=== PATIENT | female | born 1970 | race Caucasian/White ===

== ENCOUNTER → 2016-11-12 | Outpatient (CLI) | payer BC, MEDICAID | LOC: OD 13:02 | PROVIDERS: ATTEND Midwife | DX: O09.513 Supervision of elderly primigravida, third trimester (principal); Z13.0 Encounter for screening for diseases of the blood and blood-forming organs and certain disorders involving the immune mechanism; Z11.3 Encounter for screening for infections with a predominantly sexual mode of transmission; Z11.4 Encounter for screening for human immunodeficiency virus [HIV] | CPT/HCPCS: 36415; 86592; 86701 ==

== ENCOUNTER 2017-01-08 18:47 | Outpatient (CLI) | payer BC, MEDICAID ==
[2017-01-08 19:32] LABS: APPEARANCE,URINE CLEAR; BILIRUBIN,URINE NEGATIVE (NEGATIVE); GLUCOSE, URINE NEGATIVE (NEGATIVE); KETONES,URINE NEGATIVE (NEGATIVE); LEUKOCYTE ESTERASE,URINE NEGATIVE (NEGATIVE); NITRITE,URINE NEGATIVE (NEGATIVE); PROTEIN,URINE NEGATIVE (NEGATIVE); URINE SPECIFIC GRAVITY 1.011; UROBILINOGEN,URINE NEGATIVE mg/dL (<2.0)
[2017-01-08 19:58] LABS: URINE BARBITURATES SCREEN NEGATIVE; URINE METHADONE SCREEN NEGATIVE; URINE OPIATES LOW NEGATIVE; URINE PHENCYCLIDINE SCREEN NEGATIVE
== END 2017-01-08 21:03 | disposition home or self-care (01) ==
LOC: LC 18:47
PROVIDERS: ATTEND Obstetrics & Gynecology
PROC: 4A1HXCZ Monitoring of Products of Conception, Cardiac Rate, External Approach (ICD-10-PCS; principal; 2017-01-08)
DX: O47.03 False labor before 37 completed weeks of gestation, third trimester (principal); O09.523 Supervision of elderly multigravida, third trimester; Z3A.36 36 weeks gestation of pregnancy
CPT/HCPCS: 59025; 80307; 81001

== ENCOUNTER 2017-01-10 10:56 | Outpatient (CLI) | payer BC, MEDICAID ==
[2017-01-10 11:53] LABS: APPEARANCE,URINE SLIGHTLY-CLOUDY; BILIRUBIN,URINE NEGATIVE (NEGATIVE); GLUCOSE, URINE NEGATIVE (NEGATIVE); KETONES,URINE NEGATIVE (NEGATIVE); LEUKOCYTE ESTERASE,URINE MODERATE (NEGATIVE); NITRITE,URINE NEGATIVE (NEGATIVE); PROTEIN,URINE NEGATIVE (NEGATIVE); URINE SPECIFIC GRAVITY 1.004; UROBILINOGEN,URINE NEGATIVE mg/dL (<2.0)
[2017-01-10 12:37] LABS: URINE BARBITURATES SCREEN NEGATIVE; URINE METHADONE SCREEN NEGATIVE; URINE OPIATES LOW NEGATIVE; URINE PHENCYCLIDINE SCREEN NEGATIVE
== END 2017-01-10 11:41 | disposition home or self-care (01) ==
LOC: LC 10:56
PROVIDERS: ATTEND Obstetrics & Gynecology
PROC: 4A1HXCZ Monitoring of Products of Conception, Cardiac Rate, External Approach (ICD-10-PCS; principal; 2017-01-10)
DX: O09.523 Supervision of elderly multigravida, third trimester (principal); O47.03 False labor before 37 completed weeks of gestation, third trimester; Z3A.36 36 weeks gestation of pregnancy
CPT/HCPCS: 59025; 80307; 81001

== ENCOUNTER 2017-01-28 07:45 | Inpatient (IN) | payer BC, MEDICAID ==
[2017-01-28] MEDS ORDERED: OXYTOCIN/NORMAL SALINE 1,000 ML IV PRN ×2 (08:06→19:10)
[2017-01-28] MEDS ORDERED: RINGERS SOLUTION,LACTATED 1,000 ML IV PRN (08:06)
[2017-01-28] MEDS ORDERED: RINGERS SOLUTION,LACTATED 1,000 ML IV ONE (08:06)
[2017-01-28] MEDS ORDERED: OXYTOCIN/NORMAL SALINE 20 UNIT/1,000 ML RTUINJ ONE ×2 (08:52→19:50)
[2017-01-28] MEDS ORDERED: MISOPROSTOL 0.2 MG TABLET ONE (08:52)
[2017-01-28] MEDS ORDERED: LIDOCAINE 1% INJ-PF (10 MG/ML) 30 ML SDV ONE (08:52)
[2017-01-28 09:01] LABS: AMORPHOUS SEDIMENT,URINE TRACE /HPF; APPEARANCE,URINE CLOUDY; BILIRUBIN,URINE NEGATIVE (NEGATIVE); GLUCOSE, URINE NEGATIVE (NEGATIVE); KETONES,URINE TRACE mg/dL (NEGATIVE); LEUKOCYTE ESTERASE,URINE MODERATE (NEGATIVE); NITRITE,URINE NEGATIVE (NEGATIVE); PROTEIN,URINE 30 mg/dL (NEGATIVE); URINE SPECIFIC GRAVITY 1.026; UROBILINOGEN,URINE NEGATIVE mg/dL (<2.0)
[2017-01-28 09:04] LABS: ABSOLUTE BASOPHILS # (AUTO) 0.1 10^3/uL (0.0-0.2); ABSOLUTE EOSINOPHILS # (AUTO) 0.1 10^3/uL (0.0-0.6); ABSOLUTE LYMPHOCYTES (AUTO) 1.7 10^3/uL (0.5-4.7); ABSOLUTE MONOCYTES (AUTO) 0.9 10^3/uL (0.1-1.4); ABSOLUTE NEUT (AUTO) 7.4 10^3/uL (1.7-8.2); BASOPHILS % (AUTO) 0.6 % (0-2); EOSINOPHILS % (AUTO) 1.1 % (0-6); HEMATOCRIT 32.1 % (36.0-47.0); HEMOGLOBIN 10.7 g/dL (12.0-15.5); LYMPHOCYTES % (AUTO) 16.7 % (13-45); MEAN CORPUSCULAR HEMOGLOBIN 27.3 pg (27.0-33.4); MEAN CORPUSCULAR HGB CONC 33.3 g/dL (32.0-36.0); MEAN CORPUSCULAR VOLUME 82 fl (80-97); MONOCYTES % (AUTO) 8.9 % (3-13); RED BLOOD COUNT 3.92 10^6/uL (3.72-5.28); RED CELL DISTRIBUTION WIDTH 16.7 % (11.5-14.0); SEGMENTED NEUTROPHILS % (AUTO) 72.7 % (42-78); WHITE BLOOD COUNT 10.2 10^3/uL (4.0-10.5)
[2017-01-28 09:10] LABS: URINE BARBITURATES SCREEN NEGATIVE; URINE METHADONE SCREEN NEGATIVE; URINE OPIATES LOW NEGATIVE; URINE PHENCYCLIDINE SCREEN NEGATIVE
[2017-01-28] MEDS ORDERED: NALBUPHINE HCL INJ 10 MG/1 ML AMPULE INJ PRN (16:17)
[2017-01-28] MEDS ORDERED: NALBUPHINE HCL INJ 10 MG/1 ML AMPULE ONE (16:39)
[2017-01-28] MEDS ORDERED: OXYTOCIN 10 UNIT/ML VIAL ONE (18:55)
[2017-01-28] MEDS ORDERED: METHYLERGONOVINE MALEATE INJ/PF 0.2 MG/1 ML AMPULE ONE (18:55)
[2017-01-28] MEDS ORDERED: ZOLPIDEM TARTRATE 5 MG TABLET PO PRN (19:10)
[2017-01-28] MEDS ORDERED: MEASLES,MUMPS&RUBELLA VACC/PF 0.5 ML VIAL SUBCUT PRN (19:10)
[2017-01-28] MEDS ORDERED: PROMETHAZINE HCL 25 MG TABLET PO PRN (19:10)
[2017-01-28] MEDS ORDERED: NA PHOS,M-B/NA PHOS,DI-BA (ADULT) 133 ML ENEMA PR PRN (19:10)
[2017-01-28] MEDS ORDERED: PROMETHAZINE HCL INJ 25 MG/1 ML VIAL IV PRN (19:10)
[2017-01-28] MEDS ORDERED: PSEUDOEPHEDRINE HCL 30 MG TABLET PO PRN (19:10)
[2017-01-28] MEDS ORDERED: MAGNESIUM HYDROXIDE SUSP 30 ML UDCUP PO PRN (19:10)
[2017-01-28] MEDS ORDERED: ACETAMINOPHEN 650 MG SUPP.RECT PR PRN (19:10)
[2017-01-28] MEDS ORDERED: DIPH/PERTUSS(ACELL)/TETANUS VAC/PF 0.5 ML SYR (>=10YO) IM PRN (19:10)
[2017-01-28] MEDS ORDERED: PROMETHAZINE HCL 25 MG SUPP.RECT PR PRN (19:10)
[2017-01-28] MEDS ORDERED: ACETAMINOPHEN WITH CODEINE #3 TABLET PO PRN ×2 (19:10)
[2017-01-28] MEDS ORDERED: GLYCERIN/WITCH HAZEL LEAF 1 EACH MED..PAD TP PRN (19:10)
[2017-01-28] MEDS ORDERED: DIBUCAINE 1% OINTMENT 28 GM TP PRN (19:10)
[2017-01-28] MEDS ORDERED: DIPHENHYDRAMINE HCL 25 MG CAPSULE PO PRN (19:10)
[2017-01-28] MEDS ORDERED: BENZOCAINE/MENTHOL AEROSOL SPRAY 56 ML TOP PRN (19:10)
--- NOTE | 2017-01-28 21:02 | Admission Physical ---
Datetime Report Generated by CPN: 01/28/2017 21:02 CURRENT ADMISSION Chief Complaint: Scheduled Induction of Labor Indication for Induction: Other Indication for Induction- Other: AMA Admit Plan: Admit to Unit; Initiate Labor Induction Protocol ALLERGIES Medication Allergies: No Medication Allergies: No Known Allergies (01/28/2017) Medication Allergies: No Known Allergies (01/08/2017) Medication Allergies: No Known Allergies (11/10/2015) Latex: No Latex Allergies Food Allergies: None Environmental Allergies: None OBSTETRICAL HISTORY EDC: 02/02/2017 00:00 : 7 Para: 2 Term: 2 : 0 SAB: 2 IAB: 2 Ectopic: 0 Livin Cesareans: 0 VBACs: 0 Multiple Births: 0 Gestational Diabetes: No Rh Sensitization: No Incompetent Cervix: No MARK: No Infertility: No ART Treatment: No Uterine Anomaly: No IUGR: No Hx Previous C/S: No Macrosomia: No Hx Loss/Stillborn: No PIH: No Hx : No Placenta Previa/Abruption: No Depression/PP Depression: No PTL/PROM: No Post Hemorrhage: Yes Current Procedures: Ultrasound; NST Obstetrical History Comments: 1994 baby girl, 7 lb 3 oz 1999 baby girl, 8 lb 3 oz Current-Vasa Previa; AMA NO VAG EXAMSPER DR. DELAROSA WHO SPOKE WITH DR. REAL AT [facility]: PT DOES NOT HAVE VASA PREVIA AND IS OKAY FOR VAGINAL DELIVERY. States that she had post hemorrhaging with both of her previous pregnancies. SEE RECORDS Alcohol: No Alcohol Frequency: Occasional Advised to Stop: Yes Alcohol Comments: Before Marijuana : No Cocaine: No Other Illicit Drugs: No Cigarettes: Never Smoker. 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 Surgery: No Heart Disease: No Hosp/Surgery: Yes Autoimmune Disorder: No Anesthetic Complications: No Kidney Disease: No Abnormal Pap Smear: No Neuro/Epilepsy: No Psychiatric Disorders: No Other Medical Diseases: No Hepatitis/Liver Disease: No Significant Family History: No Varicosities/Phlebitis: No Trauma/Violence : No Thyroid Dysfunction: No Medical History Comments: CHILDBIRTH Surgery: Adenoidectomy, Breast Augmentation INFECTIOUS HISTORY Gonorrhea: No Genital Herpes: No Chlamydia: No Tuberculosis: No Syphilis: No Hepatitis: No HIV/AIDS Exposure: No Rash or Viral Illness: No HPV: No PHYSICAL EXAM General: Normal HEENT: Normal Neurologic: Normal Thyroid: Deferred Heart: Normal Lungs: Normal Breast: Deferred Back: Normal Abdomen: Normal Genitourinary Exam: Normal Extremities: Normal DTRs: Normal Pelvic Type: Adequate Physical Exam Comments: Gravid uterus Vital Signs: Reviewed; Within Normal Limits FETUS A EGA: 39.2 Admit Comment: H_P done after delivery. of 39.2 wks AMA-44 yrs records available. PLANS FOR LABOR AND DELIVERY Labor and Delivery: None Pain Management: Epidural Feeding Preference: Breast Benefit of Breast Feed Discussed: Yes Circumcision: Yes INFORMED CONSENT Assignment: Rolando Ingram DO Signature: with User ID: Neema : with User ID: Neema : I personally evaluated and examined the patient in conjunction with the MLP and agree with the assessment, treatment plan and disposition.
[2017-01-28] MEDS: IBUPROFEN 800 MG TABLET PO SCH (22:18)
[2017-01-28] MEDS: FAMOTIDINE 20 MG TABLET PO SCH (22:18)
[2017-01-28] MEDS: METHYLERGONOVINE MALEATE 0.2 MG TABLET PO SCH (23:22)
[2017-01-29] MEDS: DOCUSATE SODIUM 100 MG CAPSULE PO SCH ×2 (10:00→18:00)
[2017-01-29] MEDS: SENNOSIDES/DOCUSATE 8.6-50 MG 1 EACH TABLET PO SCH (10:00)
[2017-01-29] MEDS: FERROUS SULFATE 325 MG TABLET PO SCH ×2 (10:00→18:00)
[2017-01-29] MEDS: FAMOTIDINE 20 MG TABLET PO SCH ×2 (10:00→22:39)
[2017-01-29] MEDS: PRENATAL VITAMIN W-O CA NO5/FE FUMARATE/FA CAPSULE PO SCH (10:00)
[2017-01-29] MEDS: METHYLERGONOVINE MALEATE 0.2 MG TABLET PO SCH ×2 (12:00→18:00)
[2017-01-29] MEDS: IBUPROFEN 800 MG TABLET PO SCH ×2 (14:00→22:39)
[2017-01-30] MEDS: IBUPROFEN 800 MG TABLET PO SCH (06:50)
[2017-01-30 08:01] LABS: HEMATOCRIT 31.3 % (36.0-47.0); HGB HCT DIFFERENCE -1.3; MEAN CORPUSCULAR HEMOGLOBIN 26.7 pg (27.0-33.4); MEAN CORPUSCULAR HGB CONC 32.1 g/dL (32.0-36.0); MEAN CORPUSCULAR VOLUME 83 fl (80-97); RED BLOOD COUNT 3.76 10^6/uL (3.72-5.28); RED CELL DISTRIBUTION WIDTH 16.6 % (11.5-14.0); WHITE BLOOD COUNT 19.7 10^3/uL (4.0-10.5)
--- NOTE | 2017-01-30 08:21 | PDOC PROGRESS REPORT ---
Subjective-OB Subjective: Post Delivery Day: 46 year old. Denies any needs at this time Doing well, no c/o, sitting up in bed, ready to go home, hsb at BS, , voiding, diet taken well Physical Exam (OB) Vital Signs: Temp Pulse Resp BP Pulse Ox 97.6 F 93 18 105/59 L 98 01/29/17 19:35 01/29/17 19:35 01/29/17 19:35 01/29/17 19:35 01/29/17 19:35 Intake & Output 01/29/17 01/30/17 01/31/17 06:59 06:59 06:59 Weight 73.25 kg - PIH/Pre-Eclampsia DTR's: 1 + Clonus: Negative Headache: Absent Epigastric Pain: No Visual Changes: No - Lochia Lochia Amount: Small 10-25 ml Lochia Color: Rubra/Red - Abdomen Description: Soft, Round Hernia Present: No Fundal Description: Firm, Midline Fundal Height: u/u - u/2 Assessment and Plan(PN) - Assessment and Plan (1) Vaginal delivery Is this a current diagnosis for this admission?: Yes (2) Advanced maternal age (AMA), 40 years or greater Is this a current diagnosis for this admission?: Yes - Time Spent with Patient Time with patient: Less than 15 minutes Medications reviewed and adjusted accordingly: Yes - Disposition Anticipated Discharge: Home Within: Other - home today, reviewed home instructions
--- NOTE | 2017-01-30 08:25 | PDOC DISCHARGE SUMMARY ---
Final Diagnosis Discharge Date: 01/30/17 - Final Diagnosis (1) Vaginal delivery Is this a current diagnosis for this admission?: Yes (2) Advanced maternal age (AMA), 40 years or greater Is this a current diagnosis for this admission?: Yes Discharge Data - Discharge Medication Home Medications: Vit/Iron Fumarate/FA [ Tablet] 1 each PO DAILY 01/08/17 Cetirizine HCl [Zyrtec 10 mg Tablet] 1 tab PO DAILY 01/10/17 Fluticasone Propionate [Flonase Allergy Relief] 9.9 ml NS PRN PRN 01/10/17 Ferrous Sulfate [Iron] 325 mg PO DAILY 01/28/17 Gestational Age: 39.2 Reason(s) for Admission: Induction of Labor, Advanced Maternal Age Procedures: NST, Ultrasound Intrapartum Procedure(s): Spontaneous Vaginal Delivery Complication(s): Laceration-Perineal Laceration-Degree: 1st - Data Baby 1 Male at 1 minute: 9 at 5 minutes: 9 Weight: 3.6 kg Home with Mother: Yes Complications: No - Diagnosis Test Laboratory: Temp Pulse Resp BP Pulse Ox 97.6 F 93 18 105/59 L 98 01/29/17 19:35 01/29/17 19:35 01/29/17 19:35 01/29/17 19:35 01/29/17 19:35 01/28/17 01/28/17 08:00 08:40 RBC 3.92 Hgb 10.7 L Hct 32.1 L Urine Opiates Screen NEGATIVE - Discharge information/Instructions Discharge Activity: Activity As Tolerated, Keep Legs Elevated, Pelvic Rest Discharge Diet: As Tolerated, Regular Disposition: HOME, SELF-CARE Follow up with: [facility] in: 4, Weeks - BTL at 4 weeks
[2017-01-30 09:35] VITALS: BP 103/63
[2017-01-30] MEDS: DOCUSATE SODIUM 100 MG CAPSULE PO SCH (09:38)
[2017-01-30] MEDS: FERROUS SULFATE 325 MG TABLET PO SCH (09:38)
[2017-01-30] MEDS: PRENATAL VITAMIN W-O CA NO5/FE FUMARATE/FA CAPSULE PO SCH (09:38)
[2017-01-30] MEDS: SENNOSIDES/DOCUSATE 8.6-50 MG 1 EACH TABLET PO SCH (09:39)
[2017-01-30] MEDS: FAMOTIDINE 20 MG TABLET PO SCH (09:39)
--- NOTE | 2017-02-03 18:12 | Delivery Summary ---
Del Sum A-C Datetime Report Generated by CPN: 02/03/2017 18:12 DELIVERY PERSONNEL DELIVERY PERSONNEL: [phone];[phone] DELIVERY PERSONNEL: [phone] Delivery Doctor:: Kristen Arriola MD Labor and Delivery Nurse:: Skyler Lockhart RNcivil engineering drafter Nurse:: Danita Tristan RN Nursery Nurse:: SAMARIA WALKER RN Vascular Physician/LASTING MACHINE OPERATOR: Romy Perez, ST MATERNAL INFORMATION Delivery Anesthesia: Local; Pudendal (Annotations: Data stored by CPN on behalf of user) Medications After Delivery: Pitocin Bolus-Please Comment; Pitocin Drip 20 Units/1000ml NSS; Other-Please Comment Meds After Delivery Comment: CYTOTEC 1000 MCG PER VAGINA BY PITOCIN 20 UNITS ADDED TO PITOCIN IVF @ BOLUS Estimated Blood Loss (ml): 450 Maternal Complications: Other Other Maternal Complications: AMA Provider Comments: VMI delivered in MELIA presentation with nuchal cord times 1. Shoulders and delivered without difficulty. Cord doubly clamped and cut. placenta delivered intact spontaneously. FF at U after uterotonics. mother and baby stable. good hemostasis. LABOR SUMMARY EDC: 02/02/2017 00:00 No. Babies in Womb: 1 Attempted: No Labor Anesthesia: IV Sedation LABOR INFORMATION Reason for Induction: Other Reason for Induction- Other: AMa Onset of Labor: 01/28/2017 14:30 Complete Dilatation: 01/28/2017 18:19 Oxytocin: Induction Group B Beta Strep: negative Antibiotics # of Doses: 0 Steroids Given: None Reason Steroids Not Administered: Not Applicable MEMBRANES Membranes Rupture Method: Spontaneous Rupture of Membranes: 01/28/2017 18:02 Length of Rupture (hr): 0.75 Amniotic Fluid Color: Bloody Amniotic Fluid Amount: Small Amniotic Fluid Odor: None STAGES OF LABOR Stage 1 hr: 3 Stage 1 min: 49 Stage 2 hr: 0 Stage 2 min: 28 Stage 3 hr: 0 Stage 3 min: 3 Total Time in Labor hr: 4 Total Time in Labor min: 20 VAGINAL DELIVERY Episiotomy: None Laceration Extension: N/A Laceration Type: Perineal Other Laceration: SUPERFICIAL PERINEAL LAC Laceration Repair: Yes Laceration Repair Note: 1st degree laceration repaired in usual fashion Sponge Count Correct: N/A Sharps Count Correct: N/A BABY A INFORMATION Delivery Date/Time: 01/28/2017 18:47 Method of Delivery: Vaginal Method of Delivery: Vaginal Born in Route : No : N/A Forceps: N/A Vacuum Extraction: N/A Shoulder Dystocia : No PRESENTATION/POSITION BABY A Presentation: Cephalic Presentation: Cephalic Presentation: Cephalic Cephalic Presentation: N/A Vertex Position: Right Occipital Anterior Breech Presentation: N/A PLACENTA INFORMATION BABY A Placenta Delivery Time : 01/28/2017 18:50 Placenta Method of Delivery: Spontaneous Placenta Status: Delivered SCORES BABY A Heart Rate 1 min: >100 bpm Resp Effort 1 min: Good Cry Reflex Irritability 1 min: Cough or Sneeze or Pulls Away Muscle Tone 1 min: Active Motion Color 1 min: Body [place], Extremities Blue Resuscitation Effort 1 min: Tactile Stimulation SCORE 1 MIN: 9 Heart Rate 5 min: >100 bpm Resp Effort 5 min: Good Cry Reflex Irritability 5 min: Cough or Sneeze or Pulls Away Muscle Tone 5 min: Active Motion Color 5 min: Body [place], Extremities Blue Resuscitation Effort 5 min: Tactile Stimulation SCORE 5 MIN: 9 INFORMATION BABY A Gestational Age at Delivery: 39.2 Gestational Status: Full Term- 39- 40.6 Weeks Outcome : Liveborn Condition : Stable Sex: Male IDENTIFICATION BABY A Verification Date/Time: 01/28/2017 19:04 ID Band Number: [id number] Mother's Name Verified: Yes RN Verifying Infant: Eva Gonzales [facility] Additional Verifying Personnel: [employer] LASTING MACHINE OPERATOR WEIGHT/LENGTH BABY A Birthweight (gm): 3595 Infant Weight (lb): 7 Infant Weight (oz): 15 Infant Length (in): 21.00 Length (cm): 53.34 CORD INFORMATION BABY A No. Cord Vessels: 3 Nuchal Cord : Around Neck x1, Loose Cord Blood Taken: Yes-For Eval (Mom's Blood Type - or O+) Suction: Mouth ASSESSMENT BABY A Infant Complications: Multiple Variable Decels Physical Findings at Delivery: Within Normal Limits Respirations: Appears Normal Skin to Skin: Yes Skin to Skin: Yes Skin to Skin Time (min): 60 Technical Support Manager/ALS Called : No Care By: Griselda WALKER RN Transferred To: Remains with Mother BABY B INFORMATION : N/A SIGNATURES Signature: with User ID: Riley, Addendum/Amendment: Prior to delivery pt examined and c/c/+3. Pt unable to obtain epidural and pudendal block offered to her. R/B/A reviewed. She desires pudendal. Pudendal block performed in usual fashion with 10ml per side of 2% lidocaine with epinephrine. Pudendal block tolerated well. Signature: with User ID: Riley : with User ID: Riley : I personally evaluated and examined the patient in conjunction with the MLP and agree with the assessment, treatment plan and disposition.
== END 2017-01-30 12:11 | disposition home or self-care (01) | DRG 775 ==
LOC: LR 07:45 → 2S 21:00
PROVIDERS: ADMIT Obstetrics & Gynecology; ATTEND Obstetrics & Gynecology
PROC: 10E0XZZ Delivery of Products of Conception, External Approach (ICD-10-PCS; principal; 2017-01-28)
PROC: 0HQ9XZZ Repair Perineum Skin, External Approach (ICD-10-PCS; 2017-01-28)
PROC: 3E0P7GC Introduction of Other Therapeutic Substance into Female Reproductive, Via Natural or Artificial Opening (ICD-10-PCS; 2017-01-28)
PROC: 4A1HXCZ Monitoring of Products of Conception, Cardiac Rate, External Approach (ICD-10-PCS; 2017-01-28)
DX: O76 Abnormality in fetal heart rate and rhythm complicating labor and delivery (principal); O69.81X0 Labor and delivery complicated by cord around neck, without compression, not applicable or unspecified; O70.0 First degree perineal laceration during delivery; Z3A.39 39 weeks gestation of pregnancy; Z37.0 Single live birth
CPT/HCPCS: 36415; 80307; 81001; 85025; 85027; 86592; 86850; 86900; 86901; J2210; J2300; J2590; J3490

== ENCOUNTER 2017-10-09 05:16 | Day surgery (SDC) | payer BC, MEDICAID ==
[2017-10-03 12:18] LABS: HEMOGLOBIN 13.7 g/dL (12.0-15.5); MEAN CORPUSCULAR HEMOGLOBIN 29.4 pg (27.0-33.4); MEAN CORPUSCULAR HGB CONC 34.2 g/dL (32.0-36.0); MEAN CORPUSCULAR VOLUME 86 fl (80-97); PLATELET COUNT 372 10^3/uL (150-450); RED BLOOD COUNT 4.65 10^6/uL (3.72-5.28); RED CELL DISTRIBUTION WIDTH 13.8 % (11.5-14.0); WHITE BLOOD COUNT 5.8 10^3/uL (4.0-10.5)
[2017-10-03 12:42] LABS: ALANINE AMINOTRANSFERASE 28 U/L (9-52); ALBUMIN 4.5 g/dL (3.5-5.0); ALKALINE PHOSPHATASE 48 U/L (38-126); ANION GAP 12 (5-19); ASPARTATE AMINO TRANSFERASE 16 U/L (14-36); BILIRUBIN,DIRECT 0.2 mg/dL (0.0-0.4); BILIRUBIN,TOTAL 0.4 mg/dL (0.2-1.3); BLOOD UREA NITROGEN 10 mg/dL (7-20); CALCIUM 9.9 mg/dL (8.4-10.2); CARBON DIOXIDE 25 mmol/L (22-30); CHLORIDE 105 mmol/L (98-107); GLUCOSE 87 mg/dL (75-110); POTASSIUM 4.6 mmol/L (3.6-5.0); SODIUM 141.6 mmol/L (137-145); TOTAL PROTEIN 7.3 g/dL (6.3-8.2)
[2017-10-03 12:50] LABS: APPEARANCE,URINE CLEAR; BILIRUBIN,URINE NEGATIVE (NEGATIVE); COLOR,URINE STRAW; GLUCOSE, URINE NEGATIVE (NEGATIVE); KETONES,URINE NEGATIVE (NEGATIVE); LEUKOCYTE ESTERASE,URINE NEGATIVE (NEGATIVE); NITRITE,URINE NEGATIVE (NEGATIVE); PROTEIN,URINE NEGATIVE (NEGATIVE); URINE SPECIFIC GRAVITY 1.005; UROBILINOGEN,URINE NEGATIVE mg/dL (<2.0)
--- NOTE | 2017-10-03 13:26 | RADIOLOGY REPORT (SQ) ---
EXAM DESCRIPTION: CHEST PA/LATERAL COMPLETED DATE/TIME: 10/03/2017 12:06 pm REASON FOR STUDY: PRE-OP COMPARISON: None. EXAM PARAMETERS: NUMBER OF VIEWS: two views TECHNIQUE: Digital Frontal and Lateral radiographic views of the chest acquired. RADIATION DOSE: NA LIMITATIONS: none FINDINGS: LUNGS AND PLEURA: No opacities, masses or pneumothorax. No pleural effusion. MEDIASTINUM AND HILAR STRUCTURES: No masses or contour abnormalities. HEART AND VASCULAR STRUCTURES: Heart normal size. No evidence for failure. BONES: No acute findings. HARDWARE: None in the chest. OTHER: No other significant finding. IMPRESSION: NO SIGNIFICANT RADIOGRAPHIC FINDING IN THE CHEST. TECHNICAL DOCUMENTATION: JOB ID: [id number] [employer]- All Rights Reserved
--- NOTE | 2017-10-04 10:19 | EKG REPORT ---
SEVERITY:- NORMAL ECG - SINUS RHYTHM : Confirmed by: Derrek Martinez 04-Oct-2017 10:18:51
[~2017-10-09 05:16] MED LIST: CEFAZOLIN 1 GM/D5W RTU 1 GM/50 ML RTUPB IV PRN; LACTATED RINGERS 1000 ML IV PRN
[2017-10-09] MEDS ORDERED: EPHEDRINE SULFATE INJ 50 MG/1 ML AMPULE ONE (06:57)
[2017-10-09] MEDS ORDERED: MIDAZOLAM 2 MG/2 ML INJ ONE (06:57)
[2017-10-09] MEDS ORDERED: FENTANYL CITRATE INJ/PF 100 MCG/2 ML AMPUL ONE (06:57)
[2017-10-09] MEDS ORDERED: HYDROMORPHONE HCL INJ/PF 2 MG/ML AMPULE ONE (06:57)
[2017-10-09] MEDS ORDERED: DEXMEDETOMIDINE INJ 80 MCG/20 ML VIAL IV ONE (06:58)
[2017-10-09] MEDS ORDERED: PROPOFOL INJ 200 MG/20 ML VIAL IV ONE (06:58)
[2017-10-09] MEDS ORDERED: ACETAMINOPHEN 100 ML IV ONE (06:58)
[2017-10-09] MEDS ORDERED: SCOPOLAMINE HYDROBROMIDE 1.5 MG PATCH.TD72 TD ONE (07:30)
[2017-10-09] MEDS ORDERED: PROMETHAZINE HCL INJ 25 MG/1 ML VIAL IV PRN ×2 (07:43)
[2017-10-09] MEDS ORDERED: DIPHENHYDRAMINE HCL 50 MG/ML VIAL IV PRN (07:43)
[2017-10-09] MEDS ORDERED: MORPHINE SULFATE 10 MG/ML INJ IV PRN (07:43)
[2017-10-09] MEDS ORDERED: MEPERIDINE HCL/PF INJ 25 MG/1 ML DISP.SYRIN IV PRN (07:43)
[2017-10-09] MEDS ORDERED: FENTANYL CITRATE INJ/PF 100 MCG/2 ML AMPUL IV PRN ×3 (07:43)
[2017-10-09] MEDS ORDERED: ONDANSETRON HCL INJ/PF 4 MG/2 ML SDV IV PRN (07:48)
[2017-10-09] MEDS ORDERED: MORPHINE SULFATE 10 MG/ML INJ IM PRN (09:14)
[2017-10-09] MEDS: FENTANYL CITRATE INJ/PF 100 MCG/2 ML AMPUL ONE ×2 (09:29→09:34)
--- NOTE | 2017-10-09 09:54 | OPERATIVE REPORT E ---
Operative Report NAME: ANTON GUILLEN : 1970 AGE: 47Y DATE OF SURGERY: 10/09/2017 ROOM: OR PREOPERATIVE DIAGNOSIS: Uterine prolapse, cystocele, rectocele. POSTOPERATIVE DIAGNOSIS: Uterine prolapse, cystocele, rectocele. OPERATION: TOTAL VAGINAL HYSTERECTOMY, ANTERIOR AND POSTERIOR REPAIR. ESTIMATED BLOOD LOSS: Less than 200 mL. SURGEON: Patricia BORDEN M.D. ANESTHESIA: General. TISSUE REMOVED OR ALTERED: Uterus and portions of vagina. PROCEDURE: The patient was placed in a dorsal lithotomy position, prepped and draped in sterile fashion. A speculum was placed, cervix visualized and grasped with a Robina thyroid clamp. Posterior cul-de-sac was entered by sharp dissection. Posterior parietal peritoneum sutured to the posterior cuff with 2-0 Vicryl. Left uterosacral was clamped, divided, sutured with 2-0 Vicryl, repeated on the right. Cervix sharply circumscribed. The anterior parietal peritoneum was entered with sharp dissection. Serial clamps were used on the broad ligament, each pedicle being clamped, divided and sutured with 2-0 Vicryl. Continued to the level of the utero-ovarian ligaments which were cross clamped and uterus removed. The utero-ovarian ligaments were sutured with pre-tied 2-0 Vicryl followed by suture tie of 2-0 Vicryl. Pedicles were inspected and hemostasis was noted. Ovaries appeared to be normal. The cuff was then closed with interrupted figure-of-8 sutures of 2-0 Vicryl. The anterior repair was then accomplished by grasping the vaginal mucosa approximately 3 cm below the urethra and with sharp dissection and dividing in the midline just above the vaginal scar. The underlying vesicovaginal tissue was bluntly and sharply dissected and interrupted 2-0 Vicryl were then used to plicate the tissue in the midline. The excess vaginal mucosa was removed and defect closed with a running suture of 2-0 Vicryl. Posterior repair was accomplished by grasping the vaginal mucosa with remnants of the hymenal ring, dividing the tissue crosswise and in the midline just above the incision. The underlying rectovaginal tissue was bluntly and sharply divided. The rectovaginal tissue was then *------* midline using interrupted suture of 2-0 Vicryl. Excess vaginal mucosa was removed and the defect was running sutured with 2-0 Vicryl. The vagina was then packed with a vaginal pack after hemostasis was noted and the procedure terminated. She was taken to Recovery in good condition. Urine remained clear throughout the procedure. DICTATING PHYSICIAN: Patricia BORDEN M.D. [id number] PHY#: [id number] ID: [id number] JOB#: [id number] ACCT: [id number] cc:Patricia BORDEN M.D. >
[2017-10-09] MEDS ORDERED: PROMETHAZINE HCL INJ 25 MG/1 ML VIAL ONE (09:57)
[2017-10-09] MEDS ORDERED: LIDOCAINE 2% INJ-PF (20 MG/ML) 2 ML AMPUL ONE (10:48)
[2017-10-09] MEDS ORDERED: METOCLOPRAMIDE HCL INJ/PF 10 MG/2 ML SDV ONE (10:48)
[2017-10-09] MEDS ORDERED: ONDANSETRON HCL INJ/PF 4 MG/2 ML SDV ONE (10:48)
[2017-10-09] MEDS ORDERED: NEOSTIGMINE METHYLSULFATE 10 MG/10 ML VIAL ONE (10:48)
[2017-10-09] MEDS ORDERED: GLYCOPYRROLATE INJ 0.4 MG/2 ML VIAL ONE (10:48)
[2017-10-09] MEDS ORDERED: ROCURONIUM BROMIDE INJ 50 MG/5 ML VIAL IV ONE (10:48)
[2017-10-09] MEDS ORDERED: DEXAMETHASONE SOD PHOSPHATE INJ 4 MG/1 ML VIAL ONE (10:48)
[2017-10-09] MEDS ORDERED: SUCCINYLCHOLINE CHLORIDE INJ 200 MG/10 ML VIAL ONE (10:48)
[2017-10-09] MEDS: IBUPROFEN 800 MG TABLET PO SCH ×2 (14:39→22:14)
[2017-10-09] MEDS: DEXTROSE 5%-LACTATED RINGERS 1,000 ML IV PRN ×2 (14:49→22:09)
[2017-10-09] MEDS: OXYCODONE-ACETAMINOPHEN 5-325 MG TABLET PO PRN ×2 (15:48→22:12)
[2017-10-09] MEDS ORDERED: PRENATAL VITAMIN W DHA CAPSULE PO SCH (22:00)
[2017-10-09] MEDS ORDERED: NORETHINDRONE AC ETH ESTRADIOL PO SCH (22:00)
[2017-10-09] MEDS ORDERED: FERROUS SULFATE 325 MG TABLET PO SCH (22:00)
[2017-10-09] MEDS ORDERED: (PENDING PHARMACY ID) (Prenatal Vit/Iron Fum/Folic Ac [Prenatal Tablet] 1 TAB) PO SCH (22:00)
[2017-10-10] MEDS: IBUPROFEN 800 MG TABLET PO SCH (05:26)
[2017-10-10] MEDS: DEXTROSE 5%-LACTATED RINGERS 1,000 ML IV PRN (05:27)
--- NOTE | 2017-10-10 08:47 | PDOC PROGRESS REPORT ---
Subjective Progress Note for:: 10/10/17 Subjective:: pt states she feels great and has no pain Reason For Visit: N81.10 CYSTOCELE, UNSPECIFIED Physical Exam - Physical Exam Vital Signs: Temp Pulse Resp BP Pulse Ox 98.5 F 85 12 109/71 98 10/09/17 23:25 10/09/17 23:25 10/09/17 23:25 10/09/17 23:25 10/09/17 23:25 Intake & Output 10/09/17 10/10/17 10/11/17 06:59 06:59 06:59 Intake Total 0 3580 Output Total 2050 Balance 0 1530 Weight 59.87 kg General appearance: PRESENT: no acute distress Respiratory exam: PRESENT: clear to auscultation [place] GI/Abdominal exam: PRESENT: soft Result Laboratory Results: 10/03/17 11:30 10/03/17 11:30 Impressions: Chest X-Ray 10/03/17 11:53 IMPRESSION: NO SIGNIFICANT RADIOGRAPHIC FINDING IN THE CHEST. Assessment & Plan - Diagnosis (3) Rectocele Is this a current diagnosis for this admission?: Yes - Plan Summary Plan Summary: d/c today f/u 1 wk
[2017-10-10 09:24] VITALS: BP 121/81
[2017-10-10] MEDS ORDERED: INFLUENZA ADLT QUAD (36MOS+) 2017-18 VAC 0.5 ML SYR IM PRN (10:18)
== END 2017-10-10 11:45 | disposition home or self-care (01) ==
LOC: INOR 05:16 → UNDOADMIN 05:16 → ASU 2 05:16 → EDSTATUS 07:30 → 2S 10:45 → INOR 10:45 → UNDODISIN 10-10 11:45 → ASU 2 10-10 11:45
PROVIDERS: ATTEND Obstetrics & Gynecology Gynecology
PROC: 0JQC0ZZ Repair Pelvic Region Subcutaneous Tissue and Fascia, Open Approach (ICD-10-PCS; 2017-10-09)
PROC: 0JQC0ZZ Repair Pelvic Region Subcutaneous Tissue and Fascia, Open Approach (ICD-10-PCS; 2017-10-09)
PROC: 0UT97ZZ Resection of Uterus, Via Natural or Artificial Opening (ICD-10-PCS; principal; 2017-10-09 07:30)
PROC: 3E0234Z Introduction of Serum, Toxoid and Vaccine into Muscle, Percutaneous Approach (ICD-10-PCS; 2017-10-10)
DX: N81.4 Uterovaginal prolapse, unspecified (principal); Z23 Encounter for immunization
CPT/HCPCS: 57260; 58260; G0008; 36415; 71046; 80053; 81001; 81025; 85027; 86850; 86900; 86901; 88305; 90686; 93005; 93010; 944; J0131; J0330; J0690; J1100; J1170; J2250; J2405; J2550; J2704; J2765; J3010; J3490